=== PATIENT | female | born 1960 | race African-American/Black ===

== ENCOUNTER 2020-08-30 17:21 | Emergency (ER) | payer OTHER ==
[2020-08-30 17:50] VITALS: BMI 34.2
[2020-08-30 20:36] LABS: BASO % 0.4 % (0-2.0); EOS % 1.6 % (0-4.5); HEMATOCRIT 36.2 % (32.4-45.2); HEMOGLOBIN 12.2 GM/dL (10.7-15.3); LYMPH % 39.7 % (8-40); MCH 32.2 pg (25.7-33.7); MCHC 33.7 g/dl (32.0-36.0); MEAN CELL VOLUME 95.6 fl (80-96); MEAN PLT VOLUME 9.2 fl (7.5-11.1); MONO % 6.5 % (3.8-10.2); NEUT % 51.8 % (42.8-82.8); PLATELET COUNT 230 K/MM3 (134-434); RBC 3.79 M/mm3 (3.60-5.2); RDW 12.4 % (11.6-15.6); WHITE BLOOD COUNT 6.2 K/mm3 (4.0-10.0)
[2020-08-30 20:44] LABS: INR 0.92 (0.83-1.09); PROTHROMBIN TIME (PATIENT) 11.4 SEC (9.7-13.0)
[2020-08-30 20:51] LABS: ACTIVATED PTT 33.3 SECONDS (25.2-36.5)
[2020-08-30 21:02] LABS: CHLORIDE 106 mmol/L (98-107); POTASSIUM 4.3 mmol/L (3.5-5.1); SODIUM 142 mmol/L (136-145)
[2020-08-30 21:04] LABS: BLOOD UREA NITROGEN 27.9 mg/dL (7-18); CALCIUM 9.5 mg/dL (8.5-10.1)
[2020-08-30 21:05] LABS: ANION GAP 6 MMOL/L (8-16); CO2 29 mmol/L (21-32); GLUCOSE,RANDOM 98 mg/dL (74-106)
[2020-08-30 21:08] LABS: SGOT/AST 24 U/L (15-37); SGPT/ALT 26 U/L (13-61)
[2020-08-30 21:09] LABS: BILIRUBIN,TOTAL 0.2 mg/dL (0.2-1); TOT PROT 8.1 g/dl (6.4-8.2)
[2020-08-30 21:11] LABS: ALK PHOS 87 U/L (45-117)
[2020-08-30 21:50] VITALS: BP 138/78; PULSE 89; TEMP 98.9
== END 2020-08-30 21:50 | disposition home or self-care (01) ==
LOC: JER 17:21
DX: R07.1 Chest pain on breathing (principal)
CPT/HCPCS: 36415; 71046-TC-FY; 80053; 82550; 82553; 84484; 85025; 85610; 85730; 93005; 93010; 99284-25